=== PATIENT | male | born 1965 | race Caucasian/White ===

== ENCOUNTER 2017-10-30 14:12 | Emergency (ER) | payer BC ==
--- NOTE | 2017-10-30 14:31 | EDM.PDOC ---
ED HPI GENERAL MEDICAL PROBLEM - General Chief Complaint: Laceration Stated Complaint: LACERATION OF ARM,[id number] Time Seen by Provider: 10/30/17 14:30 Source of Information: Reports: Patient, RN, RN Notes Reviewed History Limitations: Reports: No Limitations - History of Present Illness INITIAL COMMENTS - FREE TEXT/NARRATIVE: C/O cut left inner forearm with the tip of a pocket knife just prior to arrival. Denies any other injury. Last tetanus vaccine was in 2016. Onset: Today, Sudden Duration: Constant Location: Reports: Upper Extremity, Left Severity: Mild Improves with: Reports: None Worsens with: Reports: None Associated Symptoms: Reports: No Other Symptoms - Related Data Allergies Allergy/AdvReac Type Severity Reaction Status Date / Time No Known Allergies Allergy Verified 10/30/17 14:19 Home Meds: Home Meds Allopurinol [Zyloprim] 1 tab PO DAILY 10/30/17 [History] Lisinopril [Lisinopril] 10 mg PO DAILY 10/30/17 [History] atorvaSTATin [Lipitor] 20 mg PO DAILY 10/30/17 [History] Past Medical History Cardiovascular History: Reports: High Cholesterol, Hypertension Musculoskeletal History: Reports: Gout Social & Family History - Family History Family Medical History: Noncontributory - Living Situation & Occupation Living situation: Reports: with Family ED ROS GENERAL - Review of Systems Review Of Systems: ROS reveals no pertinent complaints other than HPI. ED EXAM, SKIN/RASH Exam: See Below Exam Limited By: No Limitations General Appearance: Alert, WD/WN, No Apparent Distress Head: Atraumatic, Normocephalic Respiratory/Chest: No Respiratory Distress Cardiovascular: Normal Peripheral Pulses Extremities: Normal Range of Motion, Normal Capillary Refill, Other (2.5cm linear laceration to depth of subcutaneous fat at the left volar forearm, no active bleeding, no FB.) Neurological: Alert, Oriented, No Motor/Sensory Deficits ED SKIN PROCEDURES - Laceration/Wound Repair Left Distal Ventral Arm Lac/Wound length In cm: 2.5 (left volar forearm) Appearance: Subcutaneous, Linear, Clean Distal NVT: Neuro & Vascular Intact, No Tendon Injury Anesthetic Type: Local Local Anesthesia - Lidocaine (Xylocaine): 1% Plain Local Anesthetic Volume: Other (8cc) Skin Prep: Chlorhexidine (Hibiciens) Saline Irrigation (cc's): 500 Exploration/Debridement/Repair: Wound Explored Closed with: Sutures Suture Size: 3-0 # of Sutures: 4 Suture Type: Nylon, Interrupted Sterile Dressing Applied: Nurse Tetanus Status Addressed: Yes Complications: No Course - Vital Signs Last Recorded V/S: Last Vital Signs Temp 35.5 C 10/30/17 14:13 Pulse 65 10/30/17 14:13 Resp 16 10/30/17 14:13 BP 115/71 10/30/17 14:13 Pulse Ox 94 L 10/30/17 14:13 - Orders/Labs/Meds Meds: Medications Discontinued Medications Generic Name Dose Route Start Last Admin Trade Name Galen PRN Reason Stop Dose Admin Bacitracin 1 dose 10/30/17 14:36 10/30/17 14:44 Bacitracin Oint 1 Gm TOP 10/30/17 14:37 1 dose ONETIME ONE Administration Lidocaine HCl 30 ml 10/30/17 14:36 10/30/17 14:44 Xylocaine-Mpf 1% INJECT 10/30/17 14:37 30 ml ONETIME ONE Administration Departure - Departure Time of Disposition: 15:10 Disposition: Home, Self-Care 01 Condition: Good Clinical Impression: Laceration of left forearm without complication Qualifiers: Encounter type: initial encounter Qualified Code(s): S51.812A - Laceration without foreign body of left forearm, initial encounter - Discharge Information Instructions: Stitches, Success, or Adhesive Wound Closure, [id number] Forms: ED Department Discharge Additional Instructions: Follow up in clinic for suture removal in 7 to 10 days.
[2017-10-30] MEDS ORDERED: Lidocaine 1% 30 ML SDV INJECT ONE (14:36)
[2017-10-30] MEDS ORDERED: Bacitracin Oint 1 GM U/D Packet TOP ONE (14:36)
== END 2017-10-30 15:28 | disposition home or self-care (01) ==
LOC: DL.ED 14:12 → MERGE 14:12 → DL.ED 15:28
DX: S51.812A Laceration without foreign body of left forearm, initial encounter (principal); E78.00 Pure hypercholesterolemia, unspecified; I10 Essential (primary) hypertension; Z79.899 Other long term (current) drug therapy; W26.0XXA Contact with knife, initial encounter
CPT/HCPCS: 12001; 99283